=== PATIENT | female | born 1945 | race Caucasian/White ===

== ENCOUNTER 2017-02-28 13:17 | Outpatient (CLI) | payer MEDICARE, BC ==
--- NOTE | 2017-02-28 15:06 | RAD ---
PA AND LATERAL CHEST: Date: 02-28-17 History: Shortness of breath over the last three days. Cough, runny nose. Comparison: 05-14-12 FINDINGS: Cardiac silhouette is at the upper limits of normal in size. Pulmonary vasculature is within normal l imits. There is minimal patchy density seen within the region of the lingula which may represent deve loping pneumonia. The right lung is clear. Vascular calcifications is seen in the thoracic aorta. The re are degenerative changes in the spine. IMPRESSION: Interval development of increased density in the region of the lingula which may be related to develo ping pneumonia. Follow up to resolution is suggested. POS: OFF
== END 2017-02-28 13:18 | disposition home or self-care (01) ==
LOC: RAD 13:17
PROVIDERS: ATTEND Internal Medicine Critical Care Medicine
DX: R06.00 Dyspnea, unspecified (principal)
CPT/HCPCS: 71046

== ENCOUNTER 2017-10-30 10:21 | Outpatient (CLI) | payer MEDICARE, BC | END 2017-10-30 10:22 | disposition home or self-care (01) | LOC: CP 10:21 | PROVIDERS: ATTEND Internal Medicine Critical Care Medicine | DX: J44.9 Chronic obstructive pulmonary disease, unspecified (principal) | CPT/HCPCS: 94060; 94727; 94729 ==

== ENCOUNTER 2020-04-14 11:50 | Outpatient (CLI) | payer MEDICARE, BC ==
--- NOTE | 2020-04-14 13:30 | ULT ---
Exam: Thyroid ultrasound HISTORY: Hypothyroidism Comparison: None Findings: Thyroid isthmus:: 1.4 cm Right thyroid lobe 4.8 x 3.0 x 2.2 cm. Left thyroid lobe: 4.7 x 2.7 x 2.2 cm Thyroid nodules: There is diffuse heterogeneity throughout the thyroid gland. There are multiple emiliana d and cystic nodules throughout the thyroid gland. Right thyroid lobe: Predominantly solid nodule in the upper pole measures 1.1 x 1.0 x 0.9 cm. Predomi josselin solid nodule in the midpole measures 0.8 x 1.0 x 1.2 cm. Left thyroid lobe: There is a solid nodule in the midpole measuring 1.4 x 1.7 x 2.0 cm. Ill-defined h ypoechoic focus in the mid pole measuring 1.1 x 1.1 x 0.9 cm. IMPRESSION: Multiple solid and additional complex nodules throughout the left and right thyroid lobe. There is a solid nodule in the left thyroid lobe with a TI-RADS score of TR 3 -mildly suspicious. Follow-up imaging in one year is recommended Transcribed Date/Time: 04/14/2020 1:34 PM
--- NOTE | 2020-04-14 13:50 | CT ---
EXAM: CT left ankle and left foot without contrast PROVIDED CLINICAL HISTORY: Pain COMPARISON: None FINDINGS: There is severe hindfoot valgus. Associated changes of subfibular impingement. Marked tibiotalar join t space loss with subcortical cystlike change and subchondral sclerosis. Postoperative changes of posterior subtalar and talonavicular arthrodesis without evidence for hardware complication. Alignmen t involving the midfoot and forefoot appears normal. Postoperative changes associated with the medial cuneiform, presumably on the basis of tibialis anterior repair. There is a thickened appearanc e to the noninsertional Achilles tendon with dystrophic calcification. There is a large tibiotalar joint effusion. There is generalized atrophy of the intrinsic foot musculature. IMPRESSION: Severe hindfoot valgus with associated subfibular impingement and end-stage tibiotalar degenerative c hange. Orthopedic consultation is recommended.
== END 2020-04-14 11:51 | disposition home or self-care (01) ==
LOC: NM 11:50 → ULT 11:51
PROVIDERS: ATTEND Family Medicine
DX: E05.90 Thyrotoxicosis, unspecified without thyrotoxic crisis or storm (principal); M19.072 Primary osteoarthritis, left ankle and foot; E04.2 Nontoxic multinodular goiter
CPT/HCPCS: 76536

== ENCOUNTER 2020-09-05 10:45 | Emergency (ER) | payer MEDICARE, BC | END 2020-09-05 13:10 | disposition home or self-care (01) | LOC: ERS 10:45 | DX: M54.41 Lumbago with sciatica, right side (principal); K21.9 Gastro-esophageal reflux disease without esophagitis; E78.5 Hyperlipidemia, unspecified; E78.00 Pure hypercholesterolemia, unspecified; E66.9 Obesity, unspecified; J45.909 Unspecified asthma, uncomplicated; F17.210 Nicotine dependence, cigarettes, uncomplicated; Z79.84 Long term (current) use of oral hypoglycemic drugs | CPT/HCPCS: 96372; 99283; J1100; J1885 ==

== ENCOUNTER 2021-02-02 14:09 | Outpatient (CLI) | payer MEDICARE, BC | END 2021-02-02 14:10 | disposition home or self-care (01) | LOC: BICMAMMO 14:09 | PROVIDERS: ATTEND Family Medicine | DX: Z13.820 Encounter for screening for osteoporosis (principal); N95.9 Unspecified menopausal and perimenopausal disorder | CPT/HCPCS: 77080 ==